=== PATIENT | male | born 1950 | race Caucasian/White ===

== ENCOUNTER 2018-11-21 08:49 | Day surgery (SDC) | payer MEDICARE ==
[~2018-11-21] VITALS: Ht 180.3 cm; Wt 78.7 kg
[~2018-11-21 08:49] MED LIST: BUPIVACAINE/PF-EPI 0.5% 1:200K ONE; MILK150C2 PO; SAW450CA7 PO; prevagen PO
[2018-11-21] MEDS ORDERED: LACTATED RINGERS 1,000 ML IV SCH (09:12)
[2018-11-21 09:33] VITALS: BP 114/78
[2018-11-21] MEDS ORDERED: MIDAZOLAM 1 MG/ML, 2ML ONE (10:52)
[2018-11-21] MEDS ORDERED: FENTANYL PF 250 MCG/5ML ONE (10:52)
[2018-11-21] MEDS ORDERED: ONDANSETRON 2MG/ML, 2ML ONE (11:08)
[2018-11-21] MEDS ORDERED: PROPOFOL 10 MG/ML, 20ML ONE (11:08)
[2018-11-21] MEDS ORDERED: DEXAMETHASONE 4 MG/ML, 1ML ONE (11:08)
[2018-11-21] MEDS ORDERED: KETOROLAC 30 MG/1 ML ONE (11:08)
[2018-11-21] MEDS ORDERED: SUCCINYLCHOLINE 20 MG/ML, 10ML ONE (11:08)
[2018-11-21] MEDS ORDERED: CEFAZOLIN 1,000 MG ONE (11:08)
[2018-11-21] MEDS ORDERED: ROCURONIUM 10 MG/ML,10ML ONE (11:08)
[2018-11-21] MEDS ORDERED: ONDANSETRON ODT 8 MG PO PRN (11:30)
[2018-11-21] MEDS ORDERED: MIDAZOLAM 1 MG/ML, 2ML IV PRN (11:30)
[2018-11-21] MEDS ORDERED: METOPROLOL 1 MG/ML, 5ML IV PRN (11:30)
[2018-11-21] MEDS ORDERED: OXYcodone 5 MG/5 ML ORAL.SOL UDC PO PRN (11:30)
[2018-11-21] MEDS ORDERED: DIPHENHYDRAMINE 50 MG/ML, 1ML IVPush PRN (11:30)
[2018-11-21] MEDS ORDERED: FENTANYL PF 100 MCG/2ML IV PRN (11:30)
[2018-11-21] MEDS ORDERED: ACETAMINOPHEN 325 MG TABLET PO PRN (11:30)
[2018-11-21] MEDS ORDERED: ONDANSETRON 2MG/ML, 2ML IV PRN (11:30)
[2018-11-21] MEDS ORDERED: PROMETHAZINE 25 MG/ML, 1ML IV PRN (11:30)
[2018-11-21] MEDS ORDERED: EPHEDRINE 50 MG/ML, 1ML IVPush PRN (11:30)
[2018-11-21] MEDS ORDERED: hydrALAzine 20 MG/ML, 1ML IV PRN (11:30)
[2018-11-21] MEDS ORDERED: MEPERIDINE/PF 25MG/0.5ML IVPush PRN (11:30)
[2018-11-21] MEDS ORDERED: MORPHINE SULFATE 4 MG/ML, 1ML IVPush PRN (11:30)
[2018-11-21] MEDS ORDERED: EPHEDRINE 50 MG/ML, 1ML IM PRN (11:30)
[2018-11-21] MEDS ORDERED: DIAZEPAM 5 MG/ML, 2ML IVPush PRN (11:30)
[2018-11-21] MEDS ORDERED: OXYcodone 5 MG/5 ML ORAL.SOL UDC ONE (12:37)
== END 2018-11-21 15:30 | disposition home or self-care (01) ==
LOC: OUT 08:49
PROVIDERS: ATTEND Surgery
DX: K40.90 Unilateral inguinal hernia, without obstruction or gangrene, not specified as recurrent (principal)
CPT/HCPCS: 49650; C1781; J0330; J0690; J1100; J1885; J2250; J2405; J2704; J3010; J7120